=== PATIENT | female | born 1980 | race Caucasian/White ===

== ENCOUNTER 2017-07-21 04:34 | Emergency (ER) | payer OTHER ==
[~2017-07-21] VITALS: Ht 162.6 cm; Wt 86.4 kg
[~2017-07-21 04:34] MED LIST: AMOXICILLIN500 MG PO; BIRTH CONTROL PILLS; CLARITIN10 M1 PO; NORCO1 TA1 PO; ZITHROMAX250 MG PO
[2017-07-21 06:25] LABS: INFLUENZA A POSITIVE (NONE DETECT); INFLUENZA B NONE DETECTED (NONE DETECT)
[2017-07-21] MEDS ORDERED: AMOXICILLIN500 MG PO (06:53)
[2017-07-21] MEDS ORDERED: TAM75CAP PO (06:53)
[2017-07-21 07:00] VITALS: BP 125/84
== END 2017-07-21 07:12 | disposition home or self-care (01) | DRG 153 ==
LOC: ED 04:34
PROVIDERS: Emergency Medicine
DX: J11.1 Influenza due to unidentified influenza virus with other respiratory manifestations (principal)

== ENCOUNTER 2017-10-24 22:50 | Emergency (ER) | payer OTHER ==
[~2017-10-24] VITALS: Ht 162.6 cm; Wt 85.6 kg
[~2017-10-24 22:50] MED LIST changes: +TAM75CAP PO
[2017-10-24] MEDS ORDERED: LAMISIL AT1 % EX (23:23)
[2017-10-24 23:32] VITALS: BP 134/96
== END 2017-10-24 23:24 | disposition home or self-care (01) | DRG 607 ==
LOC: ED 22:50
DX: B35.3 Tinea pedis (principal)

== ENCOUNTER → 2018-02-10 | Outpatient (REF) | payer OTHER ==
[~2018-02-10] MED LIST changes: +LAMISIL AT1 % EX
== END | disposition home or self-care (01) | DRG 566 ==
LOC: DI 09:08
PROVIDERS: ATTEND Physician Assistant Medical
DX: M89.8X7 Other specified disorders of bone, ankle and foot (principal)

== ENCOUNTER 2019-11-28 04:59 | Emergency (ER) | payer OTHER ==
[~2019-11-28] VITALS: Ht 162.6 cm; Wt 95.5 kg
[2019-11-28] MEDS ORDERED: NORVASC5 M1 PO (05:19)
[2019-11-28 05:54] LABS: HEMATOCRIT 39.2 % (37.0-47.0); HEMOGLOBIN 12.3 g/dl (12.0-16.0); IMMATURE GRANULOCYTES 0.4 % (0.0-5.0); MEAN CELL VOLUME 87.9 fL CALC (80.0-100.0); MEAN CORPUSCULAR HGB 27.6 pG CALC (26.0-32.0); MEAN CORPUSCULAR HGB CONC 31.4 g/dL CAL (32.0-36.0); NEUT# 13.12 thou/uL (2.00-7.15); RED BLOOD COUNT 4.46 mill/uL (4.20-5.60)
[2019-11-28 06:08] LABS: ALBUMIN 4.1 g/dL (3.2-5.0); AMYLASE 59 u/l (30-110); BILIRUBIN, TOTAL 0.2 mg/dL (0.0-1.4); BUN 12 mg/dL (7-17); BUN/CREATININE RATIO 20 (12-20 (CALC)); CHLORIDE 104 mmol/l (95-108); CREATININE 0.6 mg/dL (0.5-1.0); GFR > 60 ML/MIN (>=60 (CALC)); GFR FOR AFR.AMER. > 60 ML/MIN (>=60 (CALC)); LIPASE 114 u/l (23-300); POTASSIUM 3.8 mmol/l (3.5-5.1); SGOT/AST 21 u/l (14-36); SODIUM 137 mmol/l (137-146); TOTAL PROTEIN 7.1 g/dL (6.3-8.2)
[2019-11-28 06:12] LABS: D-DIMER 0.19 mg/L (0.19-0.60)
[2019-11-28 06:13] LABS: HCG SERUM/URINE (NEG/POS) NEGATIVE (NEGATIVE)
[2019-11-28 06:14] LABS: ALKALINE PHOSPHATASE 127 u/l (38-126); ANION GAP 10 (6-22 (CALC)); CARBON DIOXIDE 27 mmol/l (22-30)
[2019-11-28 06:20] LABS: MYOGLOBIN 42 ng/mL (0 - 62)
[2019-11-28 06:23] LABS: ACT PARTIAL THROMBO TIME 25.4 SECONDS (20.0-32.5); INTERNATIONAL NORMALIZED RATIO 0.9 RATIO (0.7-1.3); PROTHROMBIN TIME 9.4 SECONDS (9.0-12.5)
[2019-11-28 06:23] LABS: URINE BILIRUBIN - DIPSTICK NEGATIVE (NEGATIVE); URINE BLOOD DIPSTICK MODERATE (NEGATIVE); URINE COLOR YELLOW; URINE GLUCOSE - DIPSTICK NEGATIVE (NEGATIVE); URINE KETONE NEGATIVE (NEGATIVE); URINE LEUK ESTERASE NEGATIVE (NEGATIVE); URINE NITRITE - DIPSTICK NEGATIVE (Negative); URINE PH 7.5 (4.5-8.0); URINE PROTEIN - DIPSTICK NEGATIVE (NEG-TRACE); URINE UROBILINOGEN - DIPSTICK 0.2 E.U./dL (0.2)
[2019-11-28 06:42] LABS: URINE BACTERIA FEW hpf; URINE SQUAMOUS EPITHELIAL CELL FEW EPI/hpf (0-FEW)
[2019-11-28 06:43] LABS: URINE AMORPH SEDIMENT FEW hpf (NONE-FEW)
[2019-11-28] MEDS ORDERED: PROTONIX40 M2 PO ×3 (06:54→08:10)
[2019-11-28] MEDS ORDERED: ZITHROMAX250 MG PO ×3 (06:54→08:10)
[2019-11-28] MEDS ORDERED: ONDANSETRON4 MG PO ×3 (06:54→08:10)
[2019-11-28 08:12] VITALS: BP 135/76
== END 2019-11-28 08:12 | disposition home or self-care (01) | DRG 392 ==
LOC: ED 04:59
DX: K21.9 Gastro-esophageal reflux disease without esophagitis (principal); N39.0 Urinary tract infection, site not specified; T17.918A Gastric contents in respiratory tract, part unspecified causing other injury, initial encounter; I10 Essential (primary) hypertension; X58.XXXA Exposure to other specified factors, initial encounter; Z20.828 Contact with and (suspected) exposure to other viral communicable diseases
CPT/HCPCS: S0164

== ENCOUNTER 2022-12-23 07:08 | Observation (INO) | payer OTHER ==
[~2022-12-23] VITALS: Ht 162.6 cm; Wt 97.2 kg
[2022-12-23] VITALS (10 sets, daily range): BP systolic 116–169; BP diastolic 77–114
[~2022-12-23 07:08] MED LIST changes: +NORVASC5 M1 PO; +ONDANSETRON4 MG PO; +PROTONIX40 M2 PO
--- NOTE | 2022-12-23 07:08 | NUR ---
PATIENT ARRIVED TO ER VIA POV. PATIENT WAS WHEELED TO ROOM BY STAFF. PHYSICIAN AT BEDSIDE. PATIENT IS AWAKE, ALERT AND STABLE. NO DISTRESS NOTED. PATIENT DENIES ANY PAIN. WILL CONTINUE TO MONITOR.
[2022-12-23 07:47] LABS: BASO% 0.3 % (0-3); EOS% 0.9 % (0-8); HEMATOCRIT 43.1 % (37.0-47.0); HEMOGLOBIN 13.7 g/dl (12.0-16.0); IMMATURE GRANULOCYTES 0.3 % (0.0-5.0); LYMPH% 17.1 % (15-41); MEAN CORPUSCULAR HGB 28.3 pG CALC (26.0-32.0); MEAN CORPUSCULAR HGB CONC 31.8 g/dL CAL (32.0-36.0); MONO% 5.5 % (2-13); NEUT# 12.19 thou/uL (2.00-7.15); NEUT% 75.9 % (42-76); RED BLOOD COUNT 4.84 mill/uL (4.20-5.60); RED CELL DISTRI WIDTH 14.3 % (11.5-15.5)
[2022-12-23 07:59] LABS: ALBUMIN 4.4 g/dL (3.2-5.0); ALKALINE PHOSPHATASE 102 u/l (38-126); ANION GAP 14 (6-22 (CALC)); BUN 13 mg/dL (7-17); BUN/CREATININE RATIO 19 (12-20 (CALC)); CALCULATED LDLCHOLESTEROL 100 mg/dL (62-129 (CALC)); CARBON DIOXIDE 24 mmol/l (22-30); CHLORIDE 106 mmol/l (95-108); CREATININE 0.7 mg/dL (0.5-1.0); GFR FOR AFR.AMER. > 60 ML/MIN (>=60 (CALC)); GFR OTHER RACES > 60 ML/MIN (>=60 (CALC)); HDL CHOLESTEROL 43 mg/dL (39.0-59.0); POTASSIUM 4.5 mmol/l (3.5-5.1); SGOT/AST 25 u/l (14-36); SODIUM 140 mmol/l (137-146); TOTAL CHOLESTEROL 172 mg/dl (0-199); TOTAL PROTEIN 7.9 g/dL (6.3-8.2); TOTAL TRIGLYCERIDES 146 mg/dl (0-149); VLDL CHOLESTROL 29 mg/dl (1-41 (CALC))
--- NOTE | 2022-12-23 08:00 | NUR ---
PATIENT AWAKE, ALERT AND STABLE. NO DISTRESS NOTED. PATIENT STATES THAT HER DIZZINESS IS BETTER THAN ON ARRIVAL. FAMILY AT BEDSIDE. WILL CONTINUE TO MONITOR.
[2022-12-23 08:01] LABS: BILIRUBIN, TOTAL 0.4 mg/dL (0.02-1.3)
[2022-12-23 08:03] LABS: PROTHROMBIN TIME 9.9 SECONDS (9.0-12.5)
--- NOTE | 2022-12-23 09:29 | NUR ---
PATIENT AWAKE, ALERT AND STABLE. NO DISTRESS NOTED. PATIENT HAS NO PAIN CURRENTLY. WILL CONTINUE TO MONITOR.
--- NOTE | 2022-12-23 09:30 | NUR ---
SPOKE TO JESSICA BECKER AND GAVE REPORT ON PATIENT.
--- NOTE | 2022-12-23 10:00 | NUR ---
PATIENT RESTING NO DISTRESS NOTED ON EXAM. DIZZINESS ONLY WHEN STANDING. SHOWED PATIENT HOW TO USE CALL LIGHT. FAMILY AT BEDSIDE. CALL LIGHT WITHIN REACH.
[2022-12-23] MEDS ORDERED: OMEPRAZOLE DR40 MG PO (10:32)
[2022-12-23 11:48] LABS: URINE BILIRUBIN - DIPSTICK Negative (NEGATIVE); URINE BLOOD DIPSTICK Moderate (NEGATIVE); URINE GLUCOSE - DIPSTICK Negative (NEGATIVE); URINE KETONE Negative (NEGATIVE); URINE LEUK ESTERASE Negative (NEGATIVE); URINE NITRITE - DIPSTICK Negative (Negative); URINE PH 7.5 (4.5-8.0); URINE PROTEIN - DIPSTICK 100 mg/dL (NEG-TRACE); URINE SPECIFIC GRAVITY 1.025; URINE UROBILINOGEN - DIPSTICK 0.2 E.U./dL (0.2)
[2022-12-23 11:49] LABS: URINE COLOR Yellow
[2022-12-23 11:56] LABS: URINE SQUAMOUS EPITHELIAL CELL FEW EPI/hpf (0-FEW); URINE WBC 0-2 WBC/hpf (0-5)
--- NOTE | 2022-12-23 13:00 | NUR ---
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 PLAN OF CARE ON GOING.
--- NOTE | 2022-12-23 18:16 | NUR ---
NO CHANGES. FAMILY STILL AT BEDSIDE. CALL LIGHT WITHIN REACH.
--- NOTE | 2022-12-23 22:36 | NUR ---
RECEIVED REPORT AT START OF SHIFT. PT IS ALERT AND ORIENTED X 3. LYING IN BED, RESTING. ON TELMETRY. TOP BED RAILS UP. BED IS LOCKED. CALL LIGHT IN REACH
[2022-12-24 00:58] VITALS: BP 113/72
[2022-12-24 05:09] VITALS: BP 123/80
[2022-12-24 05:53] LABS: BASO% 0.3 % (0-3); EOS% 1.6 % (0-8); HEMATOCRIT 41.4 % (37.0-47.0); HEMOGLOBIN 13.1 g/dl (12.0-16.0); IMMATURE GRANULOCYTES 0.3 % (0.0-5.0); LYMPH% 23.3 % (15-41); MEAN CELL VOLUME 89.6 fL CALC (80.0-100.0); MEAN CORPUSCULAR HGB 28.4 pG CALC (26.0-32.0); MEAN CORPUSCULAR HGB CONC 31.6 g/dL CAL (32.0-36.0); MONO% 8.2 % (2-13); NEUT# 8.5 thou/uL (2.00-7.15); NEUT% 66.3 % (42-76); RED BLOOD COUNT 4.62 mill/uL (4.20-5.60); RED CELL DISTRI WIDTH 14.5 % (11.5-15.5)
[2022-12-24 06:08] LABS: ALBUMIN 3.9 g/dL (3.2-5.0); ALKALINE PHOSPHATASE 93 u/l (38-126); ANION GAP 15 (6-22 (CALC)); BILIRUBIN, TOTAL 0.3 mg/dL (0.02-1.3); BUN 14 mg/dL (7-17); BUN/CREATININE RATIO 20 (12-20 (CALC)); CARBON DIOXIDE 23 mmol/l (22-30); CHLORIDE 107 mmol/l (95-108); CREATININE 0.7 mg/dL (0.5-1.0); GFR FOR AFR.AMER. > 60 ML/MIN (>=60 (CALC)); GFR OTHER RACES > 60 ML/MIN (>=60 (CALC)); POTASSIUM 4.4 mmol/l (3.5-5.1); SGOT/AST 21 u/l (14-36); SODIUM 140 mmol/l (137-146)
[2022-12-24 06:28] VITALS: BP 116/69
[2022-12-24 10:30] VITALS: BP 120/72
[2022-12-24] MEDS ORDERED: AMOX/K CLAV875 M1 PO (11:32)
[2022-12-24] MEDS ORDERED: MECLIZINE25 MG PO (11:33)
--- NOTE | 2022-12-24 12:25 | NUR ---
Discharge instructions given. Patient verbalizes understanding of same. Discharged in stable condition via Ambulatory to Home with family. All belongings sent with pt.
== END 2022-12-24 12:25 | disposition home or self-care (01) | DRG 149 ==
LOC: ED 07:08 → ED-I 08:20 → ED 08:39 → MS2 08:40
PROVIDERS: Family Medicine; Nurse Practitioner Family; ADMIT Student in an Organized Health Care Education/Training Program; ATTEND Student in an Organized Health Care Education/Training Program
DX: R42 Dizziness and giddiness (principal); I10 Essential (primary) hypertension; H66.91 Otitis media, unspecified, right ear; D72.829 Elevated white blood cell count, unspecified
CPT/HCPCS: Q9967